=== PATIENT | female | born 1980 | race African-American/Black ===

== ENCOUNTER 2016-09-17 17:22 | Emergency (ER) | payer MEDICAID ==
[~2016-09-17] VITALS: Ht 172.7 cm; Wt 105.0 kg
[~2016-09-17 17:22] MED LIST: FLUT12AE; INHALER; P-EP-91
[2016-09-17] MEDS ORDERED: METHOCARBAMOL 500MG TABLET PO ONE (20:15)
[2016-09-17] MEDS ORDERED: KETOROLAC 60MG/2ML VIAL IM ONE (20:15)
[2016-09-17 20:55] VITALS: BP 148/74
== END 2016-09-17 20:55 | disposition home or self-care (01) ==
LOC: ER 17:23
DX: S16.1XXA Strain of muscle, fascia and tendon at neck level, initial encounter (principal); S00.93XA Contusion of unspecified part of head, initial encounter; G89.29 Other chronic pain; M54.9 Dorsalgia, unspecified; J45.909 Unspecified asthma, uncomplicated; F17.210 Nicotine dependence, cigarettes, uncomplicated; Z88.8 Allergy status to other drugs, medicaments and biological substances; Z79.899 Other long term (current) drug therapy; W18.09XA Striking against other object with subsequent fall, initial encounter; Y93.89 Activity, other specified; Y92.009 Unspecified place in unspecified non-institutional (private) residence as the place of occurrence of the external cause; Y99.8 Other external cause status
CPT/HCPCS: 96372; 99283; J1885

== ENCOUNTER 2016-10-23 00:13 | Emergency (ER) | payer MEDICAID ==
[~2016-10-23] VITALS: Ht 172.7 cm; Wt 106.0 kg
[2016-10-23] MEDS ORDERED: KETOROLAC 60MG/2ML VIAL IM ONE (02:30)
[2016-10-23] MEDS ORDERED: IPRATROPIUM/ALBUTEROL 0.5-3(2.5)MG/3ML NEB HHN ONE (02:30)
[2016-10-23] MEDS ORDERED: DIAZEPAM 2 MG TABLET PO ONE (02:30)
[2016-10-23 05:48] VITALS: BP 126/78
== END 2016-10-23 05:52 | disposition home or self-care (01) ==
LOC: ER 02:05
DX: J45.901 Unspecified asthma with (acute) exacerbation (principal); G89.29 Other chronic pain; M54.5 Low back pain; F17.210 Nicotine dependence, cigarettes, uncomplicated
CPT/HCPCS: 81025; 94640; 96372; 99283; J1885; J7620

== ENCOUNTER 2016-12-02 00:30 | Emergency (ER) | payer MEDICAID ==
[~2016-12-02] VITALS: Ht 172.7 cm; Wt 109.0 kg
[2016-12-02 03:56] VITALS: BP 129/85
[2016-12-02] MEDS ORDERED: ALBUTEROL (0.083%) 2.5MG/3ML NEB HHN ONE (05:00)
== END 2016-12-02 05:49 | disposition home or self-care (01) ==
LOC: ER 00:30
DX: J45.901 Unspecified asthma with (acute) exacerbation (principal); F11.10 Opioid abuse, uncomplicated; Z98.890 Other specified postprocedural states; Z88.8 Allergy status to other drugs, medicaments and biological substances
CPT/HCPCS: 94640; 99283; J7611

== ENCOUNTER 2017-01-26 22:50 | Emergency (ER) | payer MEDICAID ==
[~2017-01-26] VITALS: Ht 172.7 cm; Wt 105.4 kg
[2017-01-27] MEDS ORDERED: IPRATROPIUM BROMIDE (0.02%) 0.5MG/2.5ML NEB HHN STA (06:08)
[2017-01-27] MEDS ORDERED: ALBUTEROL (0.083%) 2.5MG/3ML NEB HHN STA (06:08)
[2017-01-27] MEDS ORDERED: PREDNISONE 20MG TABLET PO STA (06:08)
[2017-01-27] MEDS ORDERED: ACETAMINOPHEN 325MG TABLET PO ONE (08:15)
[2017-01-27 08:30] LABS: CLARITY URINE CLEAR (CLEAR); COLOR URINE YELLOW (YELLOW); GLUCOSE URINE NEGATIVE (NEGATIVE); KETONES URINE NEGATIVE (NEGATIVE); LEUKOCYTE ESTERASE URINE TRACE (NEGATIVE); NITRITE URINE NEGATIVE (NEGATIVE); OCCULT BLOOD URINE 2+ (NEGATIVE); PH URINE 5.5 (4.5-8.0); PROTEIN URINE NEGATIVE (NEGATIVE); SPECIFIC GRAVITY URINE 1.016 (1.005-1.030)
[2017-01-27] MEDS ORDERED: AZITHROMYCIN 500 MG TABLET PO ONE (09:00)
[2017-01-27] MEDS ORDERED: CEFTRIAXONE SODIUM 250 MG/VIAL IM ONE (09:00)
[2017-01-27] MEDS ORDERED: METRONIDAZOLE 500MG TABLET PO ONE (09:15)
[2017-01-27] MEDS ORDERED: LIDOCAINE HCL 1% 20ML VIAL (Pyxis) INJ INFIL ONE (09:30)
[2017-01-27 10:05] VITALS: BP 126/78
[2017-01-29 05:20] LABS: CHLAMYDIA TRACHOMATIS NAA Negative (Negative); NEISSERIA GONORRHOEAE NAA Negative (Negative)
== END 2017-01-27 10:07 | disposition home or self-care (01) ==
LOC: ER 22:50
DX: A59.9 Trichomoniasis, unspecified (principal); J45.909 Unspecified asthma, uncomplicated; F17.200 Nicotine dependence, unspecified, uncomplicated
CPT/HCPCS: 81001; 81025; 87210; 87491; 87591; 94640; 96372; 99284; J0696; J3490; J7512; J7611; Z7610

== ENCOUNTER 2017-08-07 13:29 | Emergency (ER) | payer MEDICAID, OTHER ==
[~2017-08-07] VITALS: Ht 170.2 cm; Wt 261.0 kg
[2017-08-07] MEDS ORDERED: KETOROLAC 60MG/2ML VIAL IM ONE (21:00)
[2017-08-07 21:49] VITALS: BP 135/70
== END 2017-08-07 21:52 | disposition home or self-care (01) ==
LOC: ER 13:29
DX: M79.1 Myalgia (principal); J45.909 Unspecified asthma, uncomplicated; I51.9 Heart disease, unspecified; Z88.8 Allergy status to other drugs, medicaments and biological substances; Z87.891 Personal history of nicotine dependence; Z98.890 Other specified postprocedural states; V43.62XA Car passenger injured in collision with other type car in traffic accident, initial encounter; Y93.89 Activity, other specified; Y92.488 Other paved roadways as the place of occurrence of the external cause
CPT/HCPCS: 96372; 99283; J1885

== ENCOUNTER 2017-08-25 22:35 | Emergency (ER) | payer MEDICAID, OTHER ==
[~2017-08-25] VITALS: Ht 172.7 cm; Wt 118.0 kg
[2017-08-26 01:03] VITALS: BP 163/77
== END 2017-08-26 03:00 | disposition home or self-care (01) ==
LOC: ER 22:35
DX: J06.9 Acute upper respiratory infection, unspecified (principal); R19.7 Diarrhea, unspecified; J45.909 Unspecified asthma, uncomplicated; F17.200 Nicotine dependence, unspecified, uncomplicated
CPT/HCPCS: 71045; 81025; 87804; 99285

== ENCOUNTER 2017-11-01 06:26 | Emergency (ER) | payer MEDICAID ==
[~2017-11-01] VITALS: Ht 172.7 cm; Wt 109.0 kg
[2017-11-01 08:51] LABS: BASOPHILS % 1.1 % (0.0-2.0); EOSINOPHILS % 1.1 % (0.0-5.0); HEMATOCRIT. 36.3 % (36.0-48.0); HEMOGLOBIN. 12.1 g/dL (12.0-16.0); LYMPHOCYTES % 18.6 % (20.0-50.0); MEAN CORPUSCULAR HEMOGLOBIN 28.2 pg (28.0-32.0); MEAN CORPUSCULAR VOLUME 84.7 fL (81.0-99.0); MEAN PLATELET VOLUME 9.6 fl (7.4-10.4); MONOCYTES % 9.6 % (2.0-8.0); NEUTROPHILS % 69.6 % (40.0-76.0); PLATELET 223 x1000/uL (130-400); RED BLOOD CELL COUNT 4.28 mill/uL (4.2-5.4); RED CELL DISTRIBUTION WIDTH 13.4 % (11.6-14.6)
[2017-11-01 08:57] LABS: CHLORIDE 106 mEq/L (98-107)
[2017-11-01 08:59] LABS: PROTHROMBIN TIME 10.5 sec (9.4-11.6)
[2017-11-01 15:40] VITALS: BP 109/75
== END 2017-11-01 16:00 | disposition home or self-care (01) ==
LOC: ER 08:02
DX: R00.2 Palpitations (principal); R79.1 Abnormal coagulation profile; Z59.0 Homelessness
CPT/HCPCS: 36415; 71045; 80053; 83880; 84484; 85025; 85610; 93005; 99285

== ENCOUNTER 2017-11-21 09:56 | Emergency (ER) | payer MEDICAID ==
[~2017-11-21] VITALS: Ht 172.7 cm; Wt 109.0 kg
[2017-11-21] MEDS ORDERED: KETOROLAC 60MG/2ML VIAL IM ONE (12:00)
[2017-11-21] MEDS ORDERED: HYDROCODONE/ACETAMINOPHEN 5/325MG TABLET PO ONE (12:45)
[2017-11-21 17:29] VITALS: BP 118/74
[2017-11-21] MEDS ORDERED: ACETAMINOPHEN 500MG TABLET ONE (17:34)
== END 2017-11-21 17:39 | disposition home or self-care (01) ==
LOC: ER 12:23
DX: S89.81XA Other specified injuries of right lower leg, initial encounter (principal); F32.9 Major depressive disorder, single episode, unspecified; F17.200 Nicotine dependence, unspecified, uncomplicated; E66.9 Obesity, unspecified; Z68.36 Body mass index [BMI] 36.0-36.9, adult; Z88.8 Allergy status to other drugs, medicaments and biological substances; Z98.890 Other specified postprocedural states; W10.8XXA Fall (on) (from) other stairs and steps, initial encounter; Y93.89 Activity, other specified; Y92.018 Other place in single-family (private) house as the place of occurrence of the external cause
CPT/HCPCS: 73562; 96372; 99284; J1885; L1830; Z7610

== ENCOUNTER 2018-12-18 18:01 | Emergency (ER) | payer SELFPAY ==
[~2018-12-18] VITALS: Ht 172.7 cm; Wt 140.0 kg
[2018-12-18 18:33] VITALS: BP 149/80
== END 2018-12-18 22:31 | disposition home or self-care (01) ==
LOC: ER 18:01
DX: H60.02 Abscess of left external ear (principal); D64.9 Anemia, unspecified; J45.909 Unspecified asthma, uncomplicated; F17.200 Nicotine dependence, unspecified, uncomplicated; Z88.8 Allergy status to other drugs, medicaments and biological substances; Z76.0 Encounter for issue of repeat prescription
CPT/HCPCS: 69000; 99283

== ENCOUNTER 2019-01-14 17:13 | Emergency (ER) | payer SELFPAY ==
[~2019-01-14] VITALS: Ht 172.7 cm; Wt 142.2 kg
[2019-01-14] MEDS ORDERED: POLYMYXIN B SULFATE/TMP 10ML BOTTLE BOTHEYE SCH (19:15)
[2019-01-14 20:25] VITALS: BP 134/62
== END 2019-01-14 20:40 | disposition home or self-care (01) ==
LOC: ER 17:13
DX: B99.8 Other infectious disease (principal); H10.89 Other conjunctivitis; J45.909 Unspecified asthma, uncomplicated; D64.9 Anemia, unspecified; E66.9 Obesity, unspecified; F17.200 Nicotine dependence, unspecified, uncomplicated; Z98.890 Other specified postprocedural states; Z88.8 Allergy status to other drugs, medicaments and biological substances
CPT/HCPCS: 99283

== ENCOUNTER 2019-06-26 15:11 | Emergency (ER) | payer MEDICAID ==
[~2019-06-26] VITALS: Ht 172.7 cm; Wt 137.0 kg
[2019-06-26] MEDS ORDERED: IBUPROFEN 600MG TABLET PO STA (19:37)
[2019-06-26] MEDS ORDERED: HYDROCODONE/ACETAMINOPHEN 5/325MG TABLET PO STA (20:23)
[2019-06-26 20:52] VITALS: BP 145/79
== END 2019-06-26 20:53 | disposition home or self-care (01) ==
LOC: ER 15:11
DX: J20.9 Acute bronchitis, unspecified (principal); M25.562 Pain in left knee; M25.561 Pain in right knee; J45.909 Unspecified asthma, uncomplicated; Z98.890 Other specified postprocedural states; Z79.899 Other long term (current) drug therapy; W01.0XXA Fall on same level from slipping, tripping and stumbling without subsequent striking against object, initial encounter; Y93.89 Activity, other specified; Y92.89 Other specified places as the place of occurrence of the external cause; Y99.8 Other external cause status
CPT/HCPCS: 71045; 73560; 99283

== ENCOUNTER 2019-08-16 18:09 | Emergency (ER) | payer MEDICAID ==
[~2019-08-16] VITALS: Ht 172.7 cm; Wt 136.0 kg
[2019-08-16] MEDS ORDERED: MAGNESIUM/ALUMINUM HYDROXIDE/SIMETHICONE 30ML UDC PO STA (19:29)
[2019-08-16] MEDS ORDERED: DICYCLOMINE 10 MG/5 ML ORAL SYR PO STA (19:29)
[2019-08-16] MEDS ORDERED: VISCOUS LIDOCAINE 2% 15 ML UDC PO STA (19:29)
[2019-08-16 20:05] LABS: BASOPHILS % 1.2 % (0.0-2.0); CHLORIDE 102 mEq/L (98-107); EOSINOPHILS % 0.8 % (0.0-5.0); HEMATOCRIT. 30.6 % (36.0-48.0); HEMOGLOBIN. 9.4 g/dL (12.0-16.0); LYMPHOCYTES % 16.9 % (20.0-50.0); MEAN CORPUSCULAR HEMOGLOBIN 18.3 pg (28.0-32.0); MEAN CORPUSCULAR VOLUME 59.4 fL (81.0-99.0); MONOCYTES % 6.3 % (2.0-8.0); NEUTROPHILS % 74.8 % (40.0-76.0); RED BLOOD CELL COUNT 5.15 mill/uL (4.2-5.4)
[2019-08-16 20:10] LABS: ETHANOL BLOOD < 10 mg/dL
[2019-08-16 20:20] LABS: MEAN PLATELET VOLUME 9.2 fl (7.4-10.4); PLATELET 244 x1000/uL (130-400); PLATELET ESTIMATE NORMAL
[2019-08-16 20:38] LABS: CLARITY URINE CLEAR (CLEAR); COLOR URINE YELLOW (YELLOW); KETONES URINE NEGATIVE (NEGATIVE); LEUKOCYTE ESTERASE URINE NEGATIVE (NEGATIVE); NITRITE URINE NEGATIVE (NEGATIVE); OCCULT BLOOD URINE NEGATIVE (NEGATIVE); PROTEIN URINE NEGATIVE (NEGATIVE); UROBILINOGEN URINE 0.2 E.U./dL (0.2-1.0)
[2019-08-16] MEDS ORDERED: DIPHENHYDRAMINE 12.5MG/5ML UDC PO ONE (21:00)
[2019-08-16 21:15] VITALS: BP 125/74
== END 2019-08-16 21:16 | disposition home or self-care (01) ==
LOC: ER 18:09
DX: R10.13 Epigastric pain (principal); J45.909 Unspecified asthma, uncomplicated; Z98.890 Other specified postprocedural states
CPT/HCPCS: 36415; 80053; 80320; 81003; 83690; 85025; 99284; Q0163; G0480

== ENCOUNTER 2019-09-16 15:02 | Emergency (ER) | payer MEDICAID ==
[~2019-09-16] VITALS: Ht 167.6 cm; Wt 136.0 kg
[2019-09-16] MEDS ORDERED: IBUPROFEN 600MG TABLET PO ONE (16:30)
[2019-09-16 18:30] VITALS: BP 138/88
== END 2019-09-16 18:52 | disposition home or self-care (01) ==
LOC: ER 15:02
DX: T16.2XXA Foreign body in left ear, initial encounter (principal); T16.1XXA Foreign body in right ear, initial encounter; X58.XXXA Exposure to other specified factors, initial encounter; Y93.89 Activity, other specified; Y92.89 Other specified places as the place of occurrence of the external cause; Y99.8 Other external cause status; D64.9 Anemia, unspecified; J45.909 Unspecified asthma, uncomplicated; F32.9 Major depressive disorder, single episode, unspecified; Z98.890 Other specified postprocedural states; Z79.899 Other long term (current) drug therapy
CPT/HCPCS: 99284